=== PATIENT | male | born 1935 | race Caucasian/White ===

== ENCOUNTER 2018-02-22 12:19 | Emergency (ER) | payer MEDICARE, OTHER ==
[2018-02-22 12:34] VITALS: BP 171/67
[2018-02-22] MEDS ORDERED: methylPREDNISolone Sodium Succinate 125 MG/2 ML SDV IVPUSH ONE (12:39)
[2018-02-22] MEDS ORDERED: Ondansetron 4 MG/2 ML SDV IVPUSH ONE (12:39)
[2018-02-22] MEDS ORDERED: Sodium Chloride 0.9% 500 ML IV ONE (12:39)
[2018-02-22] MEDS ORDERED: Diazepam 5 MG/ML 10 ML Vial MDV IV ONE (12:40)
[2018-02-22] MEDS ORDERED: Sodium Chloride 0.9% 10 ML Syringe FLUSH PRN (12:40)
--- NOTE | 2018-02-22 12:56 | EDM.PDOC ---
ED HPI GENERAL MEDICAL PROBLEM - General Chief Complaint: Chest Pain Stated Complaint: DIZZY VOMITING AND SWEATING Time Seen by Provider: 02/22/18 12:25 Source of Information: Reports: Patient, RN Notes Reviewed - History of Present Illness INITIAL COMMENTS - FREE TEXT/NARRATIVE: 82-year-old male comes in after onset of severe dizziness, vertigo in nature with sudden onset very short time ago. He states he had leaned over to turn on some water to water his lawn. He straightened back up he had severe dizziness, like things were spinning around and also became very nauseated. He states he did make it to the bathroom but he did vomit a large amount. He did have some upper abdominal discomfort with the nausea and vomiting. That is now gone. No chest pain or difficulty breathing. He states that he does feel better now lying on a caught, lying still not moving. Been does seem to make the dizziness worse. No headache. He felt fine, completely normal earlier this morning. Left Lower Chest Pain Score (Numeric/FACES): 7 - Related Data Allergies Allergy/AdvReac Type Severity Reaction Status Date / Time No Known Allergies Allergy Verified 02/22/18 12:28 Home Meds: Home Meds Lisinopril/Hydrochlorothiazide [Lisinopril-Hctz 10-12.5 mg Tab] 1 each PO DAILY 06/12/16 [History] Simvastatin [Zocor] 20 mg PO DAILY 06/12/16 [History] metFORMIN HCl [Glucophage] 1,000 mg PO BID 06/12/16 [History] traMADol [Ultram] 50 mg PO BID 06/12/16 [History] Past Medical History HEENT History: Reports: Impaired Vision Cardiovascular History: Reports: High Cholesterol, Hypertension Endocrine/Metabolic History: Reports: Diabetes, Type II Social & Family History - Family History Family Medical History: Noncontributory - Tobacco Use Smoking Status *Q: Unknown Ever Smoked Second Hand Smoke Exposure: No - Recreational Drug Use Recreational Drug Use: No ED ROS GENERAL - Review of Systems Review Of Systems: See Below Constitutional: Reports: Diaphoresis (Now gone). Denies: Fever, Chills HEENT: Reports: Vertigo. Denies: Ear Discharge, Ear Pain, Sinus Problem, Vision Change Respiratory: Denies: Shortness of Breath Cardiovascular: Denies: Chest Pain GI/Abdominal: Reports: Abdominal Pain, Nausea (Upper abdominal, gone), Vomiting Musculoskeletal: Reports: No Symptoms Skin: Denies: Rash Neurological: Reports: Dizziness (No better), Weakness (Now better). Denies: Numbness, Tingling, Trouble Speaking ED EXAM, DIZZINESS - Physical Exam Exam: See Below General Appearance: Alert, No Apparent Distress Nystagmus: reproducible Ears: Normal External Exam Nose: Normal Inspection Throat/Mouth: Normal Inspection, Normal Oropharynx Head Exam: Atraumatic. No: Facial Swelling Vertigo: reproducible Neck: Normal Inspection Respiratory/Chest: No Respiratory Distress, Lungs Clear, Normal Breath Sounds Cardiovascular: Regular Rate, Rhythm GI/Abdominal: Soft, Non-Tender. No: Guarding Neurological: Alert, No Motor/Sensory Deficits, Oriented x 3 Back Exam: No: CVA Tenderness (L), CVA Tenderness (R) Extremities: Normal Inspection. No: Pedal Edema, Leg Pain Skin Exam: Warm, Dry, Normal Color EKG INTERPRETATION EKG Date: 02/22/18 Rhythm: Other (Sinus bradycardia) [place]: Normal P-Wave: Present QRS: Other (There are small Q waves V2) ST-T: Other (T-wave inversion in lead 3) Course - Vital Signs Last Recorded V/S: Last Vital Signs Temp 96.6 F 02/22/18 12:29 Pulse 54 L 02/22/18 12:29 Resp 16 02/22/18 12:29 BP 171/67 H 02/22/18 12:29 Pulse Ox 95 02/22/18 12:29 - Orders/Labs/Meds Orders: Active Orders 24 hr Category Date Time Status EKG 12 Lead [EKG Documentation Completion] [RC] STAT Care 02/22/18 12:39 Active Peripheral IV Care [RC] . DIRECTED Care 02/22/18 12:40 Active Sodium Chloride 0.9% [Saline Flush] Med 02/22/18 12:40 Active 10 ml FLUSH ASDIRECTED PRN Peripheral IV Insertion Adult [OM.PC] Stat Oth 02/22/18 12:39 Ordered Medication Orders Sodium Chloride (Saline Flush) 10 ml FLUSH ASDIRECTED PRN PRN Reason: Keep Vein Open Last Admin: 02/22/18 12:49 Dose: 10 ml Labs: Laboratory Tests 02/22/18 02/22/18 Range/Units 12:38 13:00 WBC 6.71 (4.23-9.07) K/mm3 RBC 4.54 L (4.63-6.08) M/mm3 Hgb 13.6 L (13.7-17.5) gm/L Hct 41.4 (40.1-51.0) % MCV 91.2 (79.0-92.2) fl MCH 30.0 (25.7-32.2) pg MCHC 32.9 (32.2-35.5) g/dl RDW Std Deviation 44.6 H (35.1-43.9) fL Plt Count 200 (163-337) K/mm3 MPV 10.2 (9.4-12.3) fl Neut % (Auto) 59.7 (34.0-67.9) % Lymph % (Auto) 26.4 (21.8-53.1) % [place] % (Auto) 11.3 (5.3-12.2) % Eos % (Auto) 1.9 (0.8-7.0) Baso % (Auto) 0.6 (0.1-1.2) % Neut # (Auto) 4.00 (1.78-5.38) K/mm3 Lymph # (Auto) 1.77 (1.32-3.57) K/mm3 [place] # (Auto) 0.76 (0.30-0.82) K/mm3 Eos # (Auto) 0.13 (0.04-0.54) K/mm3 Baso # (Auto) 0.04 (0.01-0.08) K/mm3 Sodium 140 (136-145) mEq/L Potassium 3.5 (3.5-5.1) mEq/L Chloride 103 (98-107) mEq/L Carbon Dioxide 27 (21-32) mEq/L Anion Gap 13.5 (5-15) BUN 21 H (7-18) mg/dL Creatinine 1.2 (0.7-1.3) mg/dL Est Cr Clr Drug Dosing 46.71 mL/min Estimated GFR (MDRD) 58 (>60) mL/min BUN/Creatinine Ratio 17.5 (14-18) Glucose 175 H (83-115) mg/dL Calcium 9.0 (8.5-10.1) mg/dL Total Bilirubin 0.9 (0.2-1.0) mg/dL AST 17 (15-37) U/L ALT 37 (16-63) U/L Alkaline Phosphatase 40 L (46-116) U/L Troponin I < 0.017 (0.00-0.056) ng/mL Total Protein 6.7 (6.4-8.2) g/dl Albumin 3.6 (3.4-5.0) g/dl Globulin 3.1 gm/dL Albumin/Globulin Ratio 1.2 (1-2) Meds: Medications Generic Name Dose Route Start Last Admin Trade Name Freq PRN Reason Stop Dose Admin Sodium Chloride 10 ml 02/22/18 12:40 02/22/18 12:49 Saline Flush FLUSH 10 ml ASDIRECTED PRN Administration Keep Vein Open Discontinued Medications Generic Name Dose Route Start Last Admin Trade Name Freq PRN Reason Stop Dose Admin Diazepam 2 mg 02/22/18 12:40 02/22/18 13:20 Valium IV 02/22/18 12:41 Not Given ONETIME ONE Diazepam 2.5 mg 02/22/18 13:11 02/22/18 13:18 Valium. PO 02/22/18 13:12 2.5 mg ONETIME ONE Administration Sodium Chloride 500 mls @ 999 mls/hr 02/22/18 12:39 02/22/18 12:48 Normal Saline IV 02/22/18 13:09 999 mls/hr .BOLUS ONE Administration Meclizine HCl 12.5 mg 02/22/18 14:35 02/22/18 14:40 Antivert PO 02/22/18 14:36 12.5 mg ONETIME ONE Administration Methylprednisolone Sodium Succinate 125 mg 02/22/18 12:39 02/22/18 12:50 Solu-Medrol IVPUSH 02/22/18 12:40 125 mg ONETIME ONE Administration Ondansetron HCl 4 mg 02/22/18 12:39 02/22/18 12:51 Zofran IVPUSH 02/22/18 12:40 4 mg ONETIME ONE Administration Departure - Departure Time of Disposition: 14:53 Disposition: Home, Self-Care 01 Condition: Fair Clinical Impression: Labyrinthitis Qualifiers: Laterality: unspecified laterality Qualified Code(s): H83.09 - Labyrinthitis, unspecified ear - Discharge Information Referrals: Evans Delaney MD [Primary Care Provider] - Forms: ED Department Discharge Additional Instructions: Rest, move slowly and carefully as tolerated, Antivert or meclizine 12.5 mg twice daily for the next 3-4 days until after symptoms have completely resolved , that is available OTC, you'll need to ask the pharmacist for that medication. Follow-up clinic if not getting back to normal within 3-5 days as expected, return to ED as needed if symptoms worsening in any way - My Orders Last 24 Hours: My Active Orders 02/22/18 12:39 EKG 12 Lead [EKG Documentation Completion] [RC] STAT Peripheral IV Insertion Adult [OM.PC] Stat 02/22/18 12:40 Peripheral IV Care [RC] . DIRECTED Sodium Chloride 0.9% [Saline Flush] 10 ml FLUSH ASDIRECTED PRN - Assessment/Plan Last 24 Hours: My Active Orders 02/22/18 12:39 EKG 12 Lead [EKG Documentation Completion] [RC] STAT Peripheral IV Insertion Adult [OM.PC] Stat 02/22/18 12:40 Peripheral IV Care [RC] . DIRECTED Sodium Chloride 0.9% [Saline Flush] 10 ml FLUSH ASDIRECTED PRN
[2018-02-22] MEDS ORDERED: Diazepam 5 MG Tab PO ONE (13:11)
[2018-02-22] MEDS ORDERED: Meclizine 12.5 MG Tab PO ONE (14:35)
== END 2018-02-22 15:30 | disposition home or self-care (01) ==
LOC: JD.ED 12:19
DX: H83.09 Labyrinthitis, unspecified ear (principal); E78.00 Pure hypercholesterolemia, unspecified; I10 Essential (primary) hypertension; E11.9 Type 2 diabetes mellitus without complications; Z79.84 Long term (current) use of oral hypoglycemic drugs; Z79.899 Other long term (current) drug therapy
CPT/HCPCS: 36415; 80053; 84484; 85025; 93005; 96361; 96374; 96375; 99284; A9270; J2405; J2930; J7040; J7050

== ENCOUNTER 2019-02-19 08:27 | Inpatient (IN) | payer MEDICARE, OTHER ==
[2019-02-19] MEDS ORDERED: Metoclopramide 10 MG/2 ML SDV IVPUSH ONE (08:44)
[2019-02-19] MEDS ORDERED: Dextrose 5%-0.9% NaCl 1,000 ML IV SCH (08:45)
[2019-02-19] MEDS ORDERED: LORazepam 2 MG/ML SDV IVPUSH ONE (08:56)
--- NOTE | 2019-02-19 08:57 | EDM.PDOC ---
ED HPI GENERAL MEDICAL PROBLEM - General Chief Complaint: Neurological Problem Stated Complaint: DIZZY,THROWING UP/CAN'T WALK Time Seen by Provider: 02/19/19 08:44 Source of Information: Reports: Patient History Limitations: Reports: No Limitations - History of Present Illness INITIAL COMMENTS - FREE TEXT/NARRATIVE: 83-year-old male presents the ED with acute onset of vertigo this morning. He has a history of recurrent vertigo last attack was about 6 months ago. His reports that he did comment that he had mild vertigo after seeing Dr. Rivera the chiropractor on Saturday this week. Denies any recent falls or closed head injuries. He is quite hard of hearing but doesn't usually wear hearing aids. Denies any humming , ringing or buzzings sounds in his ears . He states he was up in the night to void twice and wasn't vertiginous at those times. However when he got up earlier this morning he had to crawl to the bathroom as he could not walk. Of note he is asymptomatic when he is not moving and lying perfectly still. ringing or buzzing in his ears. He was up and about for the day and had eaten breakfast. He then developed a sudden onset of severe vertigo event that made him vomit and lose his breakfast. He states he was listing to both directions when he was trying to walk as if he been drinking all night. Denies any headache. No visual changes. No recent changes to any of his medications. Risk factors for stroke are hypertension, elevated cholesterol, type 2 diabetes. Onset: Today Onset Date: 02/19/19 Onset Time: 07:30 Duration: Minutes: Location: Reports: Generalized (Developed severe vertigo episode potato nausea and vomiting.) Quality: Reports: Other Severity: Severe (Vertigo symptoms with difficulty walking.) Improves with: Reports: Rest (No symptoms at rest.) Worsens with: Reports: Movement Context: Denies: Activity (Movement of head or neck or trying to walk.), Exercise, Lifting, Sick Contact, Trauma, Other Associated Symptoms: Reports: Nausea/Vomiting. Denies: No Other Symptoms, Confusion, Chest Pain, Cough, cough w sputum, Diaphoresis, Fever/Chills, Headaches, Loss of Appetite, Malaise, Rash (Vomited up his breakfast after developing vertigo), Seizure, Shortness of Breath, Syncope Treatments H[employer] TE[employer]ER: Reports: Other (see below) (9 at home.) - Related Data Allergies Allergy/AdvReac Type Severity Reaction Status Date / Time No Known Allergies Allergy Verified 02/19/19 08:38 Home Meds: Home Meds Lisinopril/Hydrochlorothiazide [Lisinopril-Hctz 10-12.5 mg Tab] 1 each PO DAILY 06/12/16 [History] Simvastatin [Zocor] 20 mg PO DAILY 06/12/16 [History] metFORMIN HCl [Glucophage] 1,000 mg PO BID 06/12/16 [History] traMADol [Ultram] 50 mg PO BID 06/12/16 [History] Aspirin [Adult Low Dose Aspirin EC] 81 mg PO BEDTIME 02/19/19 [History] Cyclobenzaprine [Flexeril] 10 mg PO BEDTIME PRN 02/19/19 [History] Levothyroxine [Synthroid] 50 mcg PO ACBREAKFAST 02/19/19 [History] Past Medical History HEENT History: Reports: Hard of Hearing (Does have a hearing aids but rarely uses them.), Impaired Vision, Macular Degeneration Cardiovascular History: Reports: High Cholesterol, Hypertension Respiratory History: Reports: COPD (Mild C OPD by history) Gastrointestinal History: Reports: GERD (Occasional GERD) Musculoskeletal History: Reports: Osteoarthritis (Knees hips back and neck at times) Endocrine/Metabolic History: Reports: Diabetes, Type II, Hypothyroidism (He is also on levothyroxine 50 g daily.) Social & Family History - Family History Family Medical History: Noncontributory - Living Situation & Occupation Living situation: Reports: (His had to be [facility] in [place] a week ago due to 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 He can now longer cope with her illness. His family indicates that he has been under great deal of stress due to this.) Occupation: Retired ED ROS GENERAL - Review of Systems Review Of Systems: See Below Constitutional: Reports: Malaise. Denies: Fever, Chills HEENT: Reports: Glasses, Hearing Loss, Vertigo (Has macular degeneration.), Vision Change Respiratory: Reports: Shortness of Breath ( History of recurrent bouts of vertigo in the past). Denies: Wheezing, Pleuritic Chest Pain, Cough, Sputum, Hemoptysis Cardiovascular: Reports: Blood Pressure Problem. Denies: No Symptoms, Chest Pain, Claudication, Dyspnea on Exertion, Edema, Lightheadedness, Orthopnea (On medication for blood pressure) Endocrine: Reports: Fatigue GI/Abdominal: Reports: Constipation, Nausea, Vomiting (Vomited once this morning after eating breakfast.). Denies: Abdominal Pain, Decreased Appetite, Difficulty Swallowing : Reports: Frequency (Occasional problems with constipation), Other (Nocturia usually 2.) Musculoskeletal: Reports: Back Pain (Knees hips shoulders and neck at times), Joint Pain Skin: Reports: No Symptoms Neurological: Reports: No Symptoms, Difficulty Walking (Unable to walk hardly at all this morning due to vertigo.) Psychiatric: Reports: No Symptoms Hematologic/Lymphatic: Reports: No Symptoms Immunologic: Reports: No Symptoms ED EXAM, NEURO - Physical Exam Exam: See Below Exam Limited By: Physical Impairment (Mildly hearing impaired.) General Appearance: Alert, WD/WN, No Apparent Distress, Other (Asymptomatic when lying still.) Eye Exam: Bilateral Eye: Normal Inspection, Nystagmus (No nystagmus identified.) Ears: Normal TMs (Now wearing hearing aids. No), Hearing Loss (Neck bilaterally) Throat/Mouth: Normal Inspection, Normal Lips, Normal Oropharynx, Other Head Exam: Atraumatic, Normocephalic (Uvula is in the midline) Neck: Normal Inspection, Supple, Non-Tender, Full Range of Motion Respiratory/Chest: No Respiratory Distress, Lungs Clear, No Accessory Muscle Use , Chest Non-Tender, Decreased Breath Sounds, Other (Sats are 94% on room air). No: Rhonchi, Wheezing Cardiovascular: Regular Rate, Rhythm, No Edema, No Gallop, No Murmur, No Rub. No: Normal Peripheral Pulses GI/Abdominal: Normal Bowel Sounds, Soft, Non-Tender, No Organomegaly, No Abnormal Bruit, No Mass, Pelvis Stable, Other (Umbilical hernia that is asymptomatic) Neurological: Alert, Normal Mood/Affect, Normal Dorsiflexion, CN II-XII Intact, Normal Plantar Flexion, No Motor/Sensory Deficits, Oriented x 3, Other (Heel to charles is normal. No pronator drift.). No: Abnormal Finger to Nose DTR: 0: Achilles (R), Achilles (L), 1+: Bicep (R), Bicep (L), Patella (R), Patella (L) Back Exam: Normal Inspection, Full Range of Motion. No: CVA Tenderness (R) Extremities: Normal Inspection, Normal Range of Motion, Non-Tender Psychiatric: Normal Affect, Normal Mood Skin Exam: Warm, Dry, Intact, Normal Color, No Rash EKG INTERPRETATION EKG Date: 02/19/19 Time: 09:10 Rhythm: Other Rate (Beats/Min): 44 [place]: LAD-Left [place] Deviation (Left axis deviation of -39) P-Wave: Present QRS: Other (Early R-wave transition in lead V3 V4. Consider septal hypertrophy pattern. Near Q-wave in 3 and aVF. Consider possible old inferior wall myocardial infraction) ST-T: Depressed (Mild ST segment depression to 3 and aVF.) QT: Prolonged (Mildly prolonged.) EKG Interpretation Comments: Abnormal ECG Course - Vital Signs Last Recorded V/S: Last Vital Signs Temp 35.7 C 02/19/19 08:34 Pulse 51 L 02/19/19 08:34 Resp 15 02/19/19 08:34 BP 144/77 H 02/19/19 08:34 Pulse Ox 94 L 02/19/19 08:34 - Orders/Labs/Meds Orders: Active Orders 24 hr Category Date Time Status EKG Documentation Completion [RC] STAT Care 02/19/19 08:45 Active EKG Documentation Completion [RC] STAT Care 02/19/19 09:00 Active [employer] Diet [DIET] Diet 02/19/19 Lunch Active Dextrose 5%-0.9% NaCl [Dextrose 5%-Normal Saline] 1,000 Med 02/19/19 08:45 Active ml IV ASDIRECTED Medication Orders Dextrose/Sodium Chloride (Dextrose 5%-Normal Saline) 1,000 mls @ 100 mls/hr IV ASDIRECTED MICHELLE Last Admin: 02/19/19 09:00 Dose: 100 mls/hr Labs: Laboratory Tests 02/19/19 02/19/19 02/19/19 Range/Units 09:00 09:00 09:00 WBC 8.35 (4.23-9.07) K/mm3 RBC 4.64 (4.63-6.08) M/mm3 Hgb 13.7 (13.7-17.5) gm/L Hct 41.8 (40.1-51.0) % MCV 90.1 (79.0-92.2) fl MCH 29.5 (25.7-32.2) pg MCHC 32.8 (32.2-35.5) g/dl RDW Std Deviation 44.0 H (35.1-43.9) fL Plt Count 214 (163-337) K/mm3 MPV 10.4 (9.4-12.3) fl Neutrophils % (Manual) 78 H (40-60) % Band Neutrophils % 0 (0-10) % Lymphocytes % (Manual) 15 L (20-40) % Atypical Lymphs % 0 % Monocytes % (Manual) 7 (2-10) % Eosinophils % (Manual) 0 L (0.8-7.0) % Basophils % (Manual) 0 L (0.2-1.2) Platelet Estimate Adequate RBC Morph Comment Normal PT 11.1 (9.5-12.1) SECONDS INR 1.02 APTT 24 (24-31) SECONDS Sodium 139 (136-145) mEq/L Potassium 3.6 (3.5-5.1) mEq/L Chloride 102 (98-107) mEq/L Carbon Dioxide 28 (21-32) mEq/L Anion Gap 12.6 (5-15) BUN 17 (7-18) mg/dL Creatinine 1.0 (0.7-1.3) mg/dL Est Cr Clr Drug Dosing 55.10 mL/min Estimated GFR (MDRD) > 60 (>60) mL/min BUN/Creatinine Ratio 17.0 (14-18) Glucose 170 H (83-115) mg/dL Calcium 9.1 (8.5-10.1) mg/dL Magnesium 1.8 (1.8-2.4) mg/dl Total Bilirubin 1.0 (0.2-1.0) mg/dL AST 21 (15-37) U/L ALT 37 (16-63) U/L Alkaline Phosphatase 40 L (46-116) U/L Troponin I < 0.017 (0.00-0.056) ng/mL C-Reactive Protein < 0.2 (<1.0) mg/dL NT-Pro-B Natriuret Pep (0-450) pg/mL Total Protein 6.8 (6.4-8.2) g/dl Albumin 3.6 (3.4-5.0) g/dl Globulin 3.2 gm/dL Albumin/Globulin Ratio 1.1 (1-2) TSH 3rd Generation (0.358-3.74) uIU/mL 02/19/19 02/19/19 Range/Units 09:00 09:00 WBC (4.23-9.07) K/mm3 RBC (4.63-6.08) M/mm3 Hgb (13.7-17.5) gm/L Hct (40.1-51.0) % MCV (79.0-92.2) fl MCH (25.7-32.2) pg MCHC (32.2-35.5) g/dl RDW Std Deviation (35.1-43.9) fL Plt Count (163-337) K/mm3 MPV (9.4-12.3) fl Neutrophils % (Manual) (40-60) % Band Neutrophils % (0-10) % Lymphocytes % (Manual) (20-40) % Atypical Lymphs % % Monocytes % (Manual) (2-10) % Eosinophils % (Manual) (0.8-7.0) % Basophils % (Manual) (0.2-1.2) Platelet Estimate RBC Morph Comment PT (9.5-12.1) SECONDS INR APTT (24-31) SECONDS Sodium (136-145) mEq/L Potassium (3.5-5.1) mEq/L Chloride (98-107) mEq/L Carbon Dioxide (21-32) mEq/L Anion Gap (5-15) BUN (7-18) mg/dL Creatinine (0.7-1.3) mg/dL Est Cr Clr Drug Dosing mL/min Estimated GFR (MDRD) (>60) mL/min BUN/Creatinine Ratio (14-18) Glucose (83-115) mg/dL Calcium (8.5-10.1) mg/dL Magnesium (1.8-2.4) mg/dl Total Bilirubin (0.2-1.0) mg/dL AST (15-37) U/L ALT (16-63) U/L Alkaline Phosphatase (46-116) U/L Troponin I (0.00-0.056) ng/mL C-Reactive Protein (<1.0) mg/dL NT-Pro-B Natriuret Pep 101 (0-450) pg/mL Total Protein (6.4-8.2) g/dl Albumin (3.4-5.0) g/dl Globulin gm/dL Albumin/Globulin Ratio (1-2) TSH 3rd Generation 2.594 (0.358-3.74) uIU/mL Meds: Medications Generic Name Dose Route Start Last Admin Trade Name Freq PRN Reason Stop Dose Admin Dextrose/Sodium Chloride 1,000 mls @ 100 mls/hr 02/19/19 08:45 02/19/19 09:00 Dextrose 5%-Normal Saline IV 100 mls/hr ASDIRECTED MICHELLE Administration Discontinued Medications Generic Name Dose Route Start Last Admin Trade Name Freq PRN Reason Stop Dose Admin Lorazepam 0.5 mg 02/19/19 08:56 02/19/19 09:12 Ativan IVPUSH 02/19/19 08:57 0.5 mg ONETIME ONE Administration Meclizine HCl 25 mg 02/19/19 11:40 02/19/19 12:10 Antivert PO 02/19/19 11:41 25 mg ONETIME ONE Administration Metoclopramide HCl 7.5 mg 02/19/19 08:44 02/19/19 09:00 Reglan IVPUSH 02/19/19 08:45 7.5 mg ONETIME ONE Administration - Radiology Interpretation Free Text/Narrative:: 83-year-old male presents to the ED with acute onset of vertigo this morning that precipitated nausea and vomiting of his breakfast. No recent falls or closed head injuries. He has a history of intermittent problems with vertigo. By history has some component of vertebrobasilar insufficiency. At rest he is asymptomatic. Complete neuro exam reveals no abnormalities. He has no nystagmus at present. No visual field losses.. He usually wears hearing aids but doesn't have remained today. Reports no increased humming,buzzing or ringing in his ears. Remains mildly nauseated. Plan IV Reglan 7.5 mg with Ativan 0.5 mg IV. IV will be D5 normal saline 100 mils per hour. Routine labs to be performed. At this time I see no evidence of focal neurological deficit to suggest stroke. Will reexamine him in about an hour and a quarter once the medic medications of become effective. - Re-Assessments/Exams Free Text/Narrative Re-Assessment/Exam: 02/19/19 10:03 Labs reveal a normal white count at 8.35 with 70% neutrophils and no band cells reported. Hemoglobin is 13.7 with hematocrit of 41.8. MCV is 90.1. Bili count 214,000. PT is 11.1 with an INR of 1.02. PTT is 24. Sodium 139 with a potassium of 3.6. Chloride 12 with a bicarbonate 28. Anion gap is 12.6. BUN is 17 with a creatinine of 1.0. GFR remains greater than 60. Glucose is elevated at 170. He is a type II diabetic. Calcium 9.1 with a magnesium of 1.8. Liver function is normal. Troponin I is less than 0.017. C-reactive protein is less than 0.2. BNP 101. Total protein 6.8 with an albumin fraction of 3.6. TSH is normal at 2.59. Therefore no laboratory abnormalities are appreciated. I see that the patient is on Flexeril at bedtime on a when necessary basis and I will questioned him as to whether he took this last night as it may or may not be contributing to vertigo symptoms. 02/19/19 10:08 patient had been sleeping. It's been an hour and a quarter since he received medications. We therefore did get him up for road testing and he failed. He is very ataxic almost with both legs. Concern therefore is for possible posterior brain circulation problems/ cerebellar ischemia. He will have a CT head done first to make sure there is no bleed . Creatinine is 1.0. 02/19/19 10:34 CT of the brain reveals advanced degenerative changes with marked dilatation of the lateral ventricles and small amount of encephalomalacia at the anterior horns. There is diffuse small vessel ischemic change in both basal ganglia worse on the left side as compared to the right. There is no obvious ischemic change in the cerebellum or the cerebral cortex. Due to his symptoms and availability of MRI he will have an MRI of his brain done without contrast and then MRI angiogram without contrast. 02/19/19 11:31 MRI of the brain has been completed. Ventricles along the basal cisterns and sulci over the convexities are mildly prominent. Normal signal void is seen within the major cerebral arteries within the skull base. Minimal mucosal thickening is seen within the left maxillary sinus. Left maxillary sinus is also somewhat hypoplastic as compared to the right side and findings are felt to be chronic. No abnormal signal seen within the brain parenchyma cerebellum specifically shows no abnormal signal. Contents of the internal auditory canals are normal no cerebellopontine angle cistern masses appreciated MRI angiogram of the brain is been completed as well both distal vertebral arteries are patent to the basilar artery is sour artery is patent into both posterior cerebral arteries. Carotid siphon appears unremarkable. Middle and anterior cerebral arteries are unremarkable. No discrete aneurysm or focal stenosis is seen. Therefore no central component to his vertigo is evident at this time. 02/19/19 11:42 Discussed the findings with his family I believe a sister and daughter. Patient reassured that he is not showing any signs of stroke. However the fact that he lives alone and he can't walk since he will have to stay in the hospital to week and resolve his vertigo symptoms. I did speak with --content strategy lead hospitalist and he will see the patient on the med surgery floor. He will be admitted to med surgery floor on telemetry. Departure - Departure Time of Disposition: 13:10 Disposition: Admitted As Inpatient 67 Condition: Fair Clinical Impression: Ataxic gait Benign paroxysmal positional vertigo Qualifiers: Laterality: unspecified laterality Qualified Code(s): H81.10 - Benign paroxysmal vertigo, unspecified ear - Discharge Information *PRESCRIPTION DRUG MONITORING PROGRAM REVIEWED*: Not Applicable *COPY OF PRESCRIPTION DRUG MONITORING REPORT IN PATIENT JAMIE: Not Applicable - My Orders Last 24 Hours: My Active Orders 02/19/19 08:45 EKG Documentation Completion [RC] STAT Dextrose 5%-0.9% NaCl [Dextrose 5%-Normal Saline] 1,000 ml IV ASDIRECTED 02/19/19 09:00 EKG Documentation Completion [RC] STAT 02/19/19 Lunch [employer] Diet [DIET] - Assessment/Plan Last 24 Hours: My Active Orders 02/19/19 08:45 EKG Documentation Completion [RC] STAT Dextrose 5%-0.9% NaCl [Dextrose 5%-Normal Saline] 1,000 ml IV ASDIRECTED 02/19/19 09:00 EKG Documentation Completion [RC] STAT 02/19/19 Lunch [employer] Diet [DIET]
--- NOTE | 2019-02-19 10:56 | CT ---
Head CT Technique: Multiple axial sections through the brain were obtained. Intravenous contrast was not utilized. Comparison: Prior head CT study of 06/12/16. Findings: Ventricles along with basal cisterns and sulci over the convexities are mildly prominent. Minimal diminished density is noted within the basal ganglia and periventricular white matter most likely due to slight small vessel ischemic demyelination change. No abnormalities are seen within the cerebellum. No midline shift or mass effect is seen. Bone window settings were reviewed which show no acute calvarial abnormality. Visualized sinuses are clear. Impression: 1. Mild senescent change. Nothing acute is appreciated on noncontrast head CT exam. Diagnostic code #2
--- NOTE | 2019-02-19 11:28 | MR ---
MR angiogram of brain Technique: MR angiogram sequence was obtained centered to the osage of Garcia. Multiple MIP images were obtained in multiple projections. Comparison: No prior intracranial angiogram. Findings: Both distal vertebral arteries are patent into the basilar artery. Basilar artery is patent into both posterior cerebral arteries. Carotid siphon appears unremarkable. Middle and anterior cerebral arteries are unremarkable. No discrete aneurysm or focal stenosis is seen. Impression: 1. No abnormality is seen on MR angiogram study of the brain which is centered to the osage of Garcia. Diagnostic code #1
--- NOTE | 2019-02-19 11:31 | MR ---
MRI brain Technique: T1 sagittal; T2, T2 FLAIR, T1 and diffusion axial; thin T2 gradient echo axial images through the internal auditory canals; T2 gradient echo coronal and T1-weighted coronal images were obtained. Comparison: Prior head CT study performed earlier on the same day (10:22 AM). Findings: Ventricles along with basal cisterns and sulci over the convexities are mildly prominent. Normal signal void is seen within the major cerebral arteries within the skull base. Minimal mucosal thickening is seen within the left maxillary sinus. Left maxillary sinus is also somewhat hypoplastic as compared to the right side and findings are felt to be chronic. No abnormal signal is seen within the brain parenchyma. Cerebellum specifically show no abnormal signal. Contents of the internal auditory canals are normal. No cerebellopontine angle cistern mass is seen. No acute diffusion abnormalities are seen. Impression: 1. Mild generalized atrophy. 2. Left maxillary sinus findings which are likely incidental. 3. No additional abnormality is seen on MRI study of the brain. There is specifically no cerebellar or brainstem abnormalities being seen on this exam. Diagnostic code #2
[2019-02-19] MEDS ORDERED: Meclizine 12.5 MG Tab PO ONE (11:40)
[2019-02-19] MEDS ORDERED: LORazepam 2 MG/ML SDV IV PRN (13:53)
[2019-02-19] MEDS ORDERED: Ondansetron 4 MG/2 ML SDV IV PRN (13:53)
--- NOTE | 2019-02-19 14:12 | PCM.HP ---
H&P History of Present Illness - General Date of Service: 02/19/19 Admit Problem/Dx: Admission Diagnosis/Problem Admission Diagnosis/Problem Vertigo Source of Information: Patient - History of Present Illness Initial Comments - Free Text/Narative: 83 yo WM with h/o Dm, Afib, BPV admitted through ED after sudden onset of severe vertigo the morning of the visit, somewhat improved in ED. Brain imaging did not show any new acute process. Admits to vomiting times one, no recent head trauma or seizures. 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 - Related Data Allergies/Adverse Reactions: Allergies Allergy/AdvReac Type Severity Reaction Status Date / Time No Known Allergies Allergy Verified 02/19/19 08:38 Home Medications: Home Meds Lisinopril/Hydrochlorothiazide [Lisinopril-Hctz 10-12.5 mg Tab] 1 each PO DAILY 06/12/16 [History] Simvastatin [Zocor] 20 mg PO DAILY 06/12/16 [History] metFORMIN HCl [Glucophage] 1,000 mg PO BID 06/12/16 [History] traMADol [Ultram] 50 mg PO BID 06/12/16 [History] Aspirin [Adult Low Dose Aspirin EC] 81 mg PO BEDTIME 02/19/19 [History] Cyclobenzaprine [Flexeril] 10 mg PO BEDTIME PRN 02/19/19 [History] Levothyroxine [Synthroid] 50 mcg PO ACBREAKFAST 02/19/19 [History] Past Medical History HEENT History: Reports: Hard of Hearing (Does have a hearing aids but rarely uses them.), Impaired Vision, Macular Degeneration Cardiovascular History: Reports: High Cholesterol, Hypertension Respiratory History: Reports: COPD (Mild C OPD by history) Gastrointestinal History: Reports: GERD (Occasional GERD) Musculoskeletal History: Reports: Osteoarthritis (Knees hips back and neck at times) Neurological History: Reports: Vertigo Endocrine/Metabolic History: Reports: Diabetes, Type II, Hypothyroidism (He is also on levothyroxine 50 g daily.) - Past Surgical History HEENT Surgical History: Reports: Tonsillectomy GI Surgical History: Reports: Colonoscopy Social & Family History - Family History Family Medical History: Noncontributory - Tobacco Use Smoking Status *Q: Never Smoker Second Hand Smoke Exposure: No - Caffeine Use Caffeine Use: Reports: Coffee - Recreational Drug Use Recreational Drug Use: No - Living Situation & Occupation Living situation: Reports: ([facility] [place] a week ago due to 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 He can now longer cope with her illness. His family indicates that he has been under great deal of stress due to this.) Occupation: Retired H&P Review of Systems - Review of Systems: Review Of Systems: See Below General: Denies: Fever, Chills, Weight Loss HEENT: Reports: Hearing Changes, Vertigo. Denies: Ear Pain, Visual Changes Pulmonary: Denies: Shortness of Breath, Wheezing Cardiovascular: Reports: Edema, Blood Pressure Problem. Denies: Chest Pain, Palpitations Gastrointestinal: Reports: Nausea. Denies: Abdominal Pain, Anorexia, Diarrhea Genitourinary: Denies: Dysuria, Retention Musculoskeletal: Reports: Back Pain Skin: Denies: Cyanosis, Jaundice Psychiatric: Reports: No Symptoms Neurological: Reports: Dizziness, Gait Disturbance. Denies: Seizure, Syncope, Change in Speech Hematologic/Lymphatic: Denies: Easy Bleeding, Easy Bruising Exam - Exam Exam: See Below - Vital Signs Vital Signs: Last Vital Signs Temp 96.3 F 02/19/19 08:34 Pulse 51 L 02/19/19 08:34 Resp 15 02/19/19 08:34 BP 144/77 H 02/19/19 08:34 Pulse Ox 94 L 02/19/19 08:34 Orthostatic Blood Pressure [ 169/72 Standing] Orthostatic Blood Pressure [ 167/65 Sitting] Orthostatic Blood Pressure [ 152/60 Supine] Weight: 225 lb - Exam General: Alert, Oriented, Cooperative HEENT: Conjunctiva Clear, Mucosa Moist & [place] Neck: Supple, Trachea Midline, +2 Carotid Pulse wo Bruit. No: JVD Lungs: Normal Respiratory Effort, Crackles. No: Wheezing Cardiovascular: Regular Rate, Normal S1, Normal S2. No: Rubs, Gallop/S3 GI/Abdominal Exam: Normal Bowel Sounds, Soft, Non-Tender, No Organomegaly, No Mass Extremities: Pedal Edema. No: Joint Swelling Peripheral Pulses: 2+: Posterior Tibial (L), Posterior Tibial (R) Skin: Warm, Dry Neurological: Cranial Nerves Intact, Reflexes Equal Bilateral, Strength Equal Bilateral Neuro Extensive - Mental Status: Alert, Oriented x3, Normal Mood/Affect Neuro Extensive - Motor, Sensory, Reflexes: Ataxia. No: Motor/Sensory Deficits - Patient Data Lab Results Last 24 hrs: Laboratory Results - last 24 hr 02/19/19 02/19/19 02/19/19 Range/Units 09:00 09:00 09:00 WBC 8.35 (4.23-9.07) K/mm3 RBC 4.64 (4.63-6.08) M/mm3 Hgb 13.7 (13.7-17.5) gm/L Hct 41.8 (40.1-51.0) % MCV 90.1 (79.0-92.2) fl MCH 29.5 (25.7-32.2) pg MCHC 32.8 (32.2-35.5) g/dl RDW Std Deviation 44.0 H (35.1-43.9) fL Plt Count 214 (163-337) K/mm3 MPV 10.4 (9.4-12.3) fl Neutrophils % (Manual) 78 H (40-60) % Band Neutrophils % 0 (0-10) % Lymphocytes % (Manual) 15 L (20-40) % Atypical Lymphs % 0 % Monocytes % (Manual) 7 (2-10) % Eosinophils % (Manual) 0 L (0.8-7.0) % Basophils % (Manual) 0 L (0.2-1.2) Platelet Estimate Adequate RBC Morph Comment Normal PT 11.1 (9.5-12.1) SECONDS INR 1.02 APTT 24 (24-31) SECONDS Sodium 139 (136-145) mEq/L Potassium 3.6 (3.5-5.1) mEq/L Chloride 102 (98-107) mEq/L Carbon Dioxide 28 (21-32) mEq/L Anion Gap 12.6 (5-15) BUN 17 (7-18) mg/dL Creatinine 1.0 (0.7-1.3) mg/dL Est Cr Clr Drug Dosing 55.10 mL/min Estimated GFR (MDRD) > 60 (>60) mL/min BUN/Creatinine Ratio 17.0 (14-18) Glucose 170 H (83-115) mg/dL Calcium 9.1 (8.5-10.1) mg/dL Magnesium 1.8 (1.8-2.4) mg/dl Total Bilirubin 1.0 (0.2-1.0) mg/dL AST 21 (15-37) U/L ALT 37 (16-63) U/L Alkaline Phosphatase 40 L (46-116) U/L Troponin I < 0.017 (0.00-0.056) ng/mL C-Reactive Protein < 0.2 (<1.0) mg/dL NT-Pro-B Natriuret Pep (0-450) pg/mL Total Protein 6.8 (6.4-8.2) g/dl Albumin 3.6 (3.4-5.0) g/dl Globulin 3.2 gm/dL Albumin/Globulin Ratio 1.1 (1-2) TSH 3rd Generation (0.358-3.74) uIU/mL 02/19/19 02/19/19 Range/Units 09:00 09:00 WBC (4.23-9.07) K/mm3 RBC (4.63-6.08) M/mm3 Hgb (13.7-17.5) gm/L Hct (40.1-51.0) % MCV (79.0-92.2) fl MCH (25.7-32.2) pg MCHC (32.2-35.5) g/dl RDW Std Deviation (35.1-43.9) fL Plt Count (163-337) K/mm3 MPV (9.4-12.3) fl Neutrophils % (Manual) (40-60) % Band Neutrophils % (0-10) % Lymphocytes % (Manual) (20-40) % Atypical Lymphs % % Monocytes % (Manual) (2-10) % Eosinophils % (Manual) (0.8-7.0) % Basophils % (Manual) (0.2-1.2) Platelet Estimate RBC Morph Comment PT (9.5-12.1) SECONDS INR APTT (24-31) SECONDS Sodium (136-145) mEq/L Potassium (3.5-5.1) mEq/L Chloride (98-107) mEq/L Carbon Dioxide (21-32) mEq/L Anion Gap (5-15) BUN (7-18) mg/dL Creatinine (0.7-1.3) mg/dL Est Cr Clr Drug Dosing mL/min Estimated GFR (MDRD) (>60) mL/min BUN/Creatinine Ratio (14-18) Glucose (83-115) mg/dL Calcium (8.5-10.1) mg/dL Magnesium (1.8-2.4) mg/dl Total Bilirubin (0.2-1.0) mg/dL AST (15-37) U/L ALT (16-63) U/L Alkaline Phosphatase (46-116) U/L Troponin I (0.00-0.056) ng/mL C-Reactive Protein (<1.0) mg/dL NT-Pro-B Natriuret Pep 101 (0-450) pg/mL Total Protein (6.4-8.2) g/dl Albumin (3.4-5.0) g/dl Globulin gm/dL Albumin/Globulin Ratio (1-2) TSH 3rd Generation 2.594 (0.358-3.74) uIU/mL Result Diagrams: 02/19/19 09:00 02/19/19 09:00 - Problem List (1) Benign paroxysmal positional vertigo SNOMED Code(s): 367719033 ICD Code: H81.10 - BENIGN PAROXYSMAL VERTIGO, UNSPECIFIED EAR Status: Acute Current Visit: Yes Qualifiers: Laterality: unspecified laterality Qualified Code(s): H81.10 - Benign paroxysmal vertigo, unspecified ear (2) Diabetes mellitus SNOMED Code(s): 84248066 ICD Code: E11.9 - TYPE 2 DIABETES MELLITUS WITHOUT COMPLICATIONS Status: Acute Current Visit: Yes Qualifiers: Diabetes mellitus type: type 2 Diabetes mellitus retirement insulin use: without roasterman use Diabetes mellitus complication status: without complication Qualified Code(s): E11.9 - Type 2 diabetes mellitus without complications Problem List Initiated/Reviewed/Updated: Yes Orders Last 24hrs: Active Orders 24 hr Category Date Time Status Admission Status [Patient Status] [ADT] Routine ADT 02/19/19 11:48 Active Blood Glucose Check, Bedside [RC] QIDACANDBED Care 02/19/19 13:53 Active Blood Glucose Check, Bedside [RC] QIDACANDBED Care 02/19/19 14:05 Ordered EKG Documentation Completion [RC] STAT Care 02/19/19 08:45 Active EKG Documentation Completion [RC] STAT Care 02/19/19 09:00 Active Orthostatic Vital Signs [RC] Q4HR Care 02/19/19 14:02 Ordered Oxygen Therapy [RC] PRN Care 02/19/19 13:53 Active Up With Assistance [RC] ASDIRECTED Care 02/19/19 13:53 Active VTE/DVT Education [RC] PER UNIT ROUTINE Care 02/19/19 13:53 Active Vital Signs [RC] Q4H Care 02/19/19 13:53 Active PT Evaluation and Treatment [CONS] Routine Cons 02/19/19 13:58 Ordered [place] [employer] Diet [DIET] Diet 02/19/19 Lunch Active Heart Healthy Diet [DIET] Diet 02/19/19 Dinner Active BMP [BASIC METABOLIC PANEL,BMP] [CHEM] AM Lab 02/20/19 05:11 Ordered CBC WITH AUTO DIFF [HEME] AM Lab 02/20/19 05:11 Ordered GLYCOSYLATED HEMOGLOBIN,HGBA1C [CHEM] AM Lab 02/20/19 05:11 Ordered LIPID PANEL [CHEM] AM Lab 02/20/19 05:11 Ordered MAGNESIUM [CHEM] AM Lab 02/20/19 05:00 Ordered PHOSPHORUS [CHEM] AM Lab 02/20/19 05:00 Ordered Aspirin [Halfprin] Med 02/19/19 21:00 Active 81 mg PO BEDTIME Dextrose 5%-0.9% NaCl [Dextrose 5%-Normal Saline] 1,000 Med 02/19/19 08:45 Active ml IV ASDIRECTED Enoxaparin [Lovenox] Med 02/19/19 14:00 Ordered 40 mg SUBCUT DAILY LORazepam [Ativan] Med 02/19/19 13:53 Ordered 1 mg IV Q6H PRN Levothyroxine [Synthroid] Med 02/20/19 06:00 Active 50 mcg PO ACBREAKFAST Lisinopril/Hydrochlorothiazide Med 02/20/19 09:00 Ordered 1 each PO DAILY Ondansetron [Zofran] Med 02/19/19 13:53 Ordered 4 mg IV Q4H PRN Simvastatin [Zocor] Med 02/20/19 09:00 Ordered 20 mg PO DAILY Resuscitation Status Routine Resus Stat 02/19/19 13:53 Ordered Medication Orders Aspirin (Halfprin) 81 mg PO BEDTIME MICHELLE Enoxaparin Sodium (Lovenox) 40 mg SUBCUT DAILY MICHELLE Dextrose/Sodium Chloride (Dextrose 5%-Normal Saline) 1,000 mls @ 100 mls/hr IV ASDIRECTED MICHELLE Last Admin: 02/19/19 09:00 Dose: 100 mls/hr Levothyroxine Sodium (Synthroid) 50 mcg PO ACBREAKFAST [facility] Lorazepam (Ativan) 1 mg IV Q6H PRN PRN Reason: Nausea/Vomiting Non-Formulary Medication (Lisinopril/Hydrochlorothiazide) 1 each PO DAILY [facility] Ondansetron HCl (Zofran) 4 mg IV Q4H PRN PRN Reason: Nausea/Vomiting Simvastatin (Zocor) 20 mg PO DAILY [facility] Assessment/Plan Comment:: 1. Bedrest. Orthostatic vitals. 2. Antiemetics, meclizine, lorazepam, ondansetron prn 3. PT consult for Vicky-Hallpike and Aubree maneuvers. 4. Hold metformin, Scr 1.6, continue SSI, HbA1C
[2019-02-19] MEDS ORDERED: Enoxaparin 40 MG/0.4 ML Syringe SUBCUT SCH (15:00)
[2019-02-19] MEDS ORDERED: Sodium Chloride 0.9% 10 ML Syringe FLUSH PRN (18:00)
[2019-02-19] MEDS ORDERED: [UNRECOGNIZED DRUG - OTHER] TOP PRN ×2 (18:01→18:08)
[2019-02-19] MEDS ORDERED: Aspirin 81 MG Tab.EC PO SCH (21:00)
[2019-02-19] MEDS ORDERED: METFORMIN HCL 1000 MG PO SCH (21:00)
[2019-02-20] MEDS ORDERED: Levothyroxine 50 MCG Tab PO SCH (06:00)
[2019-02-20 06:44] LABS: HEMOGLOBIN A1C 7.2 % (4.50-6.20)
[2019-02-20 08:40] VITALS: BP 118/65
[2019-02-20] MEDS ORDERED: Hydrochlorothiazide 12.5 MG Cap PO SCH (09:00)
[2019-02-20] MEDS ORDERED: Lisinopril 10 MG Tab PO SCH (09:00)
[2019-02-20] MEDS ORDERED: Simvastatin 20 MG Tab PO SCH (09:00)
--- NOTE | 2019-02-20 12:06 | PCM.DCSUM1 ---
Discharge Summary - Hospital Course Free Text/Narrative:: 83 yo WM with h/o Dm, Afib, BPV admitted through ED after sudden onset of severe vertigo the morning of the visit, somewhat improved in ED. Brain imaging did not show any new acute process. Admits to vomiting times one, no recent head trauma or seizures. 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 [place]-Hallpike was negative, all the symptoms resolved. Being discharged home with 2 week f/u with PCP. Diagnosis: Stroke: No - Discharge Data Discharge Date: 02/20/19 Discharge Disposition: Home, Self-Care 01 Condition: Good - Discharge Diagnosis/Problem(s) (1) Benign paroxysmal positional vertigo SNOMED Code(s): 382242829 ICD Code: H81.10 - BENIGN PAROXYSMAL VERTIGO, UNSPECIFIED EAR Status: Acute Current Visit: Yes Qualifiers: Laterality: unspecified laterality Qualified Code(s): H81.10 - Benign paroxysmal vertigo, unspecified ear (2) Diabetes mellitus SNOMED Code(s): 46268411 ICD Code: E11.9 - TYPE 2 DIABETES MELLITUS WITHOUT COMPLICATIONS Status: Acute Current Visit: Yes Qualifiers: Diabetes mellitus type: type 2 Diabetes mellitus senior living insulin use: without pharmaceutical representative use Diabetes mellitus complication status: without complication Qualified Code(s): E11.9 - Type 2 diabetes mellitus without complications - Patient Summary/Data Consults: Consultations 02/19/19 13:58 PT Evaluation and Treatment [CONS] Routine - Patient Instructions Diet: Heart Healthy Diet Activity: No Strenuous Activities Driving: Do Not Drive - Discharge Plan *PRESCRIPTION DRUG MONITORING PROGRAM REVIEWED*: Not Applicable *COPY OF PRESCRIPTION DRUG MONITORING REPORT IN PATIENT JAMIE: Not Applicable Home Medications: Home Meds Lisinopril/Hydrochlorothiazide [Lisinopril-Hctz 10-12.5 mg Tab] 1 each PO DAILY 06/12/16 [History] Simvastatin [Zocor] 20 mg PO DAILY 06/12/16 [History] metFORMIN HCl [Glucophage] 1,000 mg PO BID 06/12/16 [History] traMADol [Ultram] 50 mg PO BID 06/12/16 [History] Aspirin [Adult Low Dose Aspirin EC] 81 mg PO BEDTIME 02/19/19 [History] Cyclobenzaprine [Flexeril] 10 mg PO BEDTIME PRN 02/19/19 [History] Levothyroxine [Synthroid] 50 mcg PO ACBREAKFAST 02/19/19 [History] hydroCHLOROthiazide [Hydrochlorothiazide] 12.5 mg PO DAILY cap 02/20/19 [Rx] Patient Handouts: Benign Positional Vertigo, Fall Prevention in the Home, Adult Referrals: Evans Delaney MD [Primary Care Provider] - - Discharge Summary/Plan Comment DC Time >30 min.: No - Patient Data Vitals - Most Recent: Last Vital Signs Temp 97.5 F 02/20/19 07:56 Pulse 64 02/20/19 08:45 Resp 18 02/20/19 08:45 BP 118/65 02/20/19 08:34 Pulse Ox 95 02/20/19 07:56 Orthostatic Blood Pressure [ 124/78 Standing] Orthostatic Blood Pressure [ 121/64 Sitting] Orthostatic Blood Pressure [ 119/50 Supine] Weight - Most Recent: 210 lb 8 oz I&O - Last 24 hours: Intake & Output 02/20/19 02/20/19 02/20/19 03:59 11:59 19:59 Intake Total 670 Output Total 850 Balance -180 Lab Results - Last 24 hrs: Laboratory Results - last 24 hr 02/19/19 02/19/19 02/20/19 Range/Units 17:27 20:25 05:45 WBC (4.23-9.07) K/mm3 RBC (4.63-6.08) M/mm3 Hgb (13.7-17.5) gm/L Hct (40.1-51.0) % MCV (79.0-92.2) fl MCH (25.7-32.2) pg MCHC (32.2-35.5) g/dl RDW Std Deviation (35.1-43.9) fL Plt Count (163-337) K/mm3 MPV (9.4-12.3) fl Neut % (Auto) (34.0-67.9) % Lymph % (Auto) (21.8-53.1) % [place] % (Auto) (5.3-12.2) % Eos % (Auto) (0.8-7.0) Baso % (Auto) (0.1-1.2) % Neut # (Auto) (1.78-5.38) K/mm3 Lymph # (Auto) (1.32-3.57) K/mm3 [place] # (Auto) (0.30-0.82) K/mm3 Eos # (Auto) (0.04-0.54) K/mm3 Baso # (Auto) (0.01-0.08) K/mm3 Sodium (136-145) mEq/L Potassium (3.5-5.1) mEq/L Chloride (98-107) mEq/L Carbon Dioxide (21-32) mEq/L Anion Gap (5-15) BUN (7-18) mg/dL Creatinine (0.7-1.3) mg/dL Est Cr Clr Drug Dosing mL/min Estimated GFR (MDRD) (>60) mL/min BUN/Creatinine Ratio (14-18) Glucose (83-115) mg/dL POC Glucose 136 H 120 H (83-110) mg/dL Hemoglobin A1c (4.50-6.20) % Calcium (8.5-10.1) mg/dL Phosphorus 3.3 (2.6-4.7) mg/dL Magnesium 1.9 (1.8-2.4) mg/dl Triglycerides (<150) mg/dL Cholesterol (<200) mg/dL LDL Cholesterol Direct (<100) mg/dL HDL Cholesterol (40-59) mg/dL 02/20/19 02/20/19 02/20/19 Range/Units 05:45 05:45 05:45 WBC 6.90 (4.23-9.07) K/mm3 RBC 4.40 L (4.63-6.08) M/mm3 Hgb 13.1 L (13.7-17.5) gm/L Hct 39.8 L (40.1-51.0) % MCV 90.5 (79.0-92.2) fl MCH 29.8 (25.7-32.2) pg MCHC 32.9 (32.2-35.5) g/dl RDW Std Deviation 43.4 (35.1-43.9) fL Plt Count 204 (163-337) K/mm3 MPV 10.7 (9.4-12.3) fl Neut % (Auto) 58.5 (34.0-67.9) % Lymph % (Auto) 27.2 (21.8-53.1) % [place] % (Auto) 11.6 (5.3-12.2) % Eos % (Auto) 1.9 (0.8-7.0) Baso % (Auto) 0.7 (0.1-1.2) % Neut # (Auto) 4.03 (1.78-5.38) K/mm3 Lymph # (Auto) 1.88 (1.32-3.57) K/mm3 [place] # (Auto) 0.80 (0.30-0.82) K/mm3 Eos # (Auto) 0.13 (0.04-0.54) K/mm3 Baso # (Auto) 0.05 (0.01-0.08) K/mm3 Sodium 140 (136-145) mEq/L Potassium 3.8 (3.5-5.1) mEq/L Chloride 105 (98-107) mEq/L Carbon Dioxide 23 (21-32) mEq/L Anion Gap 15.8 H (5-15) BUN 16 (7-18) mg/dL Creatinine 1.2 (0.7-1.3) mg/dL Est Cr Clr Drug Dosing 45.92 mL/min Estimated GFR (MDRD) 58 (>60) mL/min BUN/Creatinine Ratio 13.3 L (14-18) Glucose 131 H (83-115) mg/dL POC Glucose (83-110) mg/dL Hemoglobin A1c 7.20 H (4.50-6.20) % Calcium 9.0 (8.5-10.1) mg/dL Phosphorus (2.6-4.7) mg/dL Magnesium (1.8-2.4) mg/dl Triglycerides 172 H (<150) mg/dL Cholesterol 137 (<200) mg/dL LDL Cholesterol Direct 78 (<100) mg/dL HDL Cholesterol 43.0 (40-59) mg/dL 02/20/19 02/20/19 Range/Units 05:50 11:21 WBC (4.23-9.07) K/mm3 RBC (4.63-6.08) M/mm3 Hgb (13.7-17.5) gm/L Hct (40.1-51.0) % MCV (79.0-92.2) fl MCH (25.7-32.2) pg MCHC (32.2-35.5) g/dl RDW Std Deviation (35.1-43.9) fL Plt Count (163-337) K/mm3 MPV (9.4-12.3) fl Neut % (Auto) (34.0-67.9) % Lymph % (Auto) (21.8-53.1) % [place] % (Auto) (5.3-12.2) % Eos % (Auto) (0.8-7.0) Baso % (Auto) (0.1-1.2) % Neut # (Auto) (1.78-5.38) K/mm3 Lymph # (Auto) (1.32-3.57) K/mm3 [place] # (Auto) (0.30-0.82) K/mm3 Eos # (Auto) (0.04-0.54) K/mm3 Baso # (Auto) (0.01-0.08) K/mm3 Sodium (136-145) mEq/L Potassium (3.5-5.1) mEq/L Chloride (98-107) mEq/L Carbon Dioxide (21-32) mEq/L Anion Gap (5-15) BUN (7-18) mg/dL Creatinine (0.7-1.3) mg/dL Est Cr Clr Drug Dosing mL/min Estimated GFR (MDRD) (>60) mL/min BUN/Creatinine Ratio (14-18) Glucose (83-115) mg/dL POC Glucose 127 H 114 H (83-110) mg/dL Hemoglobin A1c (4.50-6.20) % Calcium (8.5-10.1) mg/dL Phosphorus (2.6-4.7) mg/dL Magnesium (1.8-2.4) mg/dl Triglycerides (<150) mg/dL Cholesterol (<200) mg/dL LDL Cholesterol Direct (<100) mg/dL HDL Cholesterol (40-59) mg/dL Med Orders - Current: Current Medications Aspirin (Halfprin) 81 mg PO BEDTIME [facility] Last Admin: 02/19/19 20:21 Dose: 81 mg Enoxaparin Sodium (Lovenox) 40 mg SUBCUT Q24H [facility] Last Admin: 02/19/19 15:01 Dose: 40 mg Hydrochlorothiazide (Hydrochlorothiazide) 12.5 mg PO DAILY [facility] Last Admin: 02/20/19 08:36 Dose: 12.5 mg Levothyroxine Sodium (Synthroid) 50 mcg PO ACBREAKFAST [facility] Last Admin: 02/20/19 05:37 Dose: 50 mcg Lisinopril (Prinivil) 10 mg PO DAILY [facility] Last Admin: 02/20/19 08:34 Dose: 10 mg Lorazepam (Ativan) 1 mg IV Q6H PRN PRN Reason: Nausea/Vomiting Theragesic Creme (Own Med) 0 each TOP ASDIRECTED PRN PRN Reason: Pain Last Admin: 02/19/19 20:22 Dose: 1 each Ondansetron HCl (Zofran) 4 mg IV Q4H PRN PRN Reason: Nausea/Vomiting Simvastatin (Zocor) 20 mg PO DAILY [facility] Last Admin: 02/20/19 08:36 Dose: 20 mg Sodium Chloride (Saline Flush) 10 ml FLUSH ASDIRECTED PRN PRN Reason: Keep Vein Open Discontinued Medications Dextrose/Sodium Chloride (Dextrose 5%-Normal Saline) 1,000 mls @ 100 mls/hr IV ASDIRECTED [facility] Last Admin: 02/19/19 09:00 Dose: 100 mls/hr Lorazepam (Ativan) 0.5 mg IVPUSH ONETIME ONE Stop: 02/19/19 08:57 Last Admin: 02/19/19 09:12 Dose: 0.5 mg Meclizine HCl (Antivert) 25 mg PO ONETIME ONE Stop: 02/19/19 11:41 Last Admin: 02/19/19 12:10 Dose: 25 mg Metoclopramide HCl (Reglan) 7.5 mg IVPUSH ONETIME ONE Stop: 02/19/19 08:45 Last Admin: 02/19/19 09:00 Dose: 7.5 mg Non-Formulary Medication (Metformin Hcl [Glucophage]) 1,000 mg PO BID [facility] Theragesic Creme (Own Med) 1 each TOP ASDIRECTED PRN PRN Reason: Pain - Exam Physical Findings Comments:: General: Alert, Oriented, Cooperative HEENT: Conjunctiva Clear, Mucosa Moist & [place] Neck: Supple, Trachea Midline, +2 Carotid Pulse wo Bruit. No: JVD Lungs: Normal Respiratory Effort, Crackles. No: Wheezing Cardiovascular: Regular Rate, Normal S1, Normal S2. No: Rubs, Gallop/S3 GI/Abdominal Exam: Normal Bowel Sounds, Soft, Non-Tender, No Organomegaly, No Mass Extremities: Pedal Edema. No: Joint Swelling Peripheral Pulses: 2+: Posterior Tibial (L), Posterior Tibial (R) Skin: Warm, Dry Neurological: Cranial Nerves Intact, Reflexes Equal Bilateral, Strength Equal Bilateral Neuro Extensive - Mental Status: Alert, Oriented x3, Normal Mood/Affect Neuro Extensive - Motor, Sensory, Reflexes: Ataxia. No: Motor/Sensory Deficits
== END 2019-02-20 14:56 | disposition home or self-care (01) | DRG 149 ==
LOC: JD.ED 08:27 → JD.MS 11:48
PROVIDERS: ADMIT Emergency Medicine; ATTEND Internal Medicine
DX: H81.10 Benign paroxysmal vertigo, unspecified ear (principal); E11.9 Type 2 diabetes mellitus without complications; I48.91 Unspecified atrial fibrillation; H91.90 Unspecified hearing loss, unspecified ear; H54.7 Unspecified visual loss; H35.30 Unspecified macular degeneration; E78.00 Pure hypercholesterolemia, unspecified; I10 Essential (primary) hypertension; J44.9 Chronic obstructive pulmonary disease, unspecified; K21.9 Gastro-esophageal reflux disease without esophagitis; M19.90 Unspecified osteoarthritis, unspecified site; E03.9 Hypothyroidism, unspecified; R26.0 Ataxic gait; Z79.82 Long term (current) use of aspirin; Z79.84 Long term (current) use of oral hypoglycemic drugs; Z79.899 Other long term (current) drug therapy
CPT/HCPCS: 36415; 70450; 70450-26; 70544; 70544-26; 70551; 70551-26; 80048; 80053; 80061; 82962; 83036; 83735; 83880; 84100; 84443; 84484; 85007; 85025; 85027; 85610; 85730; 86140; 93005; 96361; 96374; 96375; 97161-GP; 99285-25; A9270-GY; J1650; J2060; J2765; J7042

== ENCOUNTER 2021-03-13 06:56 | Emergency (ER) | payer MEDICARE, OTHER ==
[2021-03-13 07:16] VITALS: BP 168/60; PULSE 72
--- NOTE | 2021-03-13 07:44 | EDM.PDOC ---
ED HPI GENERAL MEDICAL PROBLEM - General Chief Complaint: Neuro Symptoms/Deficits Stated Complaint: DIZZY/NAUSEA Time Seen by Provider: 03/13/21 07:02 Source of Information: Reports: Patient, Family History Limitations: Reports: No Limitations - History of Present Illness INITIAL COMMENTS - FREE TEXT/NARRATIVE: Patient presents with a feeling of a lightheaded dizziness and weakness as well as some nausea and sweats. Patient was doing his normal routine drinking some coffee with his friends at the hub. He then was noted to have onset of sweats and looked uncomfortable nauseated and then he felt more dizzy and sweaty. His friends called his daughter to come pick him up as he wanted to drive home. Patient was feeling normal any got up this morning no headaches no double vision or blurry vision nausea but no vomiting little bit of a runny nose and sore throat no fevers occasional cough but no chest pain or palpitations no abdominal pain no diarrhea no burning pain or blood in the urine his balance seem to be a little off when he first helped him to the car to drive him here. [place] somewhat lightheaded. No fainting spell no ringing in the ears she does have some hearing loss on the right ear that is normal no smell or taste problems no slurred speech but sounds like he has had this happen before. - Related Data Allergies Allergy/AdvReac Type Severity Reaction Status Date / Time No Known Allergies Allergy Verified 03/13/21 07:16 Home Meds: Home Meds Lisinopril/Hydrochlorothiazide [Lisinopril-Hctz 10-12.5 mg Tab] 1 each PO DAILY 06/12/16 [History] Simvastatin [Zocor] 20 mg PO DAILY 06/12/16 [History] metFORMIN HCl [Glucophage] 1,000 mg PO BID 06/12/16 [History] traMADol [Ultram] 50 mg PO BID 06/12/16 [History] Aspirin [Adult Low Dose Aspirin EC] 81 mg PO BEDTIME 02/19/19 [History] Cyclobenzaprine [Flexeril] 10 mg PO BEDTIME PRN 02/19/19 [History] Levothyroxine [Synthroid] 50 mcg PO ACBREAKFAST 02/19/19 [History] Past Medical History HEENT History: Reports: Hard of Hearing (Does have a hearing aids but rarely uses them.), Impaired Vision, Macular Degeneration Cardiovascular History: Reports: High Cholesterol, Hypertension Respiratory History: Reports: COPD (Mild C OPD by history) Gastrointestinal History: Reports: GERD (Occasional GERD) Musculoskeletal History: Reports: Osteoarthritis (Knees hips back and neck at times) Neurological History: Reports: Vertigo Endocrine/Metabolic History: Reports: Diabetes, Type II, Hypothyroidism (He is also on levothyroxine 50 g daily.) - Infectious Disease History Infectious Disease History: Reports: Chicken Pox, Measles - Past Surgical History HEENT Surgical History: Reports: Tonsillectomy GI Surgical History: Reports: Colonoscopy Social & Family History - Family History Family Medical History: No Pertinent Family History - Caffeine Use Caffeine Use: Reports: Coffee - Living Situation & Occupation Living situation: Reports: (His [facility] [place] a week ago due to 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 He can now longer cope with her illness. His family indicates that he has been under great deal of stress due to this.) Occupation: Retired ED ROS GENERAL - Review of Systems Review Of Systems: See Below Constitutional: Reports: Diaphoresis. Denies: Fever, Chills HEENT: Reports: Glasses, Hearing Loss, Rhinitis. Denies: Vision Change Respiratory: Denies: Shortness of Breath, Cough Cardiovascular: Reports: Lightheadedness. Denies: Chest Pain, Dyspnea on Exertion, Syncope GI/Abdominal: Reports: Nausea. Denies: Abdominal Pain, Diarrhea, Distension, Vomiting : Denies: Dysuria, Frequency, Hematuria Musculoskeletal: Denies: Muscle Pain Skin: Reports: No Symptoms Neurological: Reports: Dizziness, Difficulty Walking, Weakness, Gait Disturbance. Denies: Headache, Numbness, Paresthesia, Syncope, Tingling, Trouble Speaking, Change in Speech Psychiatric: Reports: No Symptoms ED EXAM, NEURO - Physical Exam Exam: See Below Exam Limited By: No Limitations General Appearance: Alert, WD/WN, No Apparent Distress Eye Exam: Bilateral Eye: EOMI, PERRL, Vision Changes (Gross visual field deficit or nystagmus) Ears: Normal External Exam, Normal Canal Throat/Mouth: Normal Inspection, Normal Oropharynx, Normal Voice Neck: Normal Inspection, Supple Respiratory/Chest: No Respiratory Distress, Lungs Clear, Normal Breath Sounds Cardiovascular: Normal Peripheral Pulses, Regular Rate, Rhythm, No Edema GI/Abdominal: Normal Bowel Sounds, Soft, Non-Tender. No: Abnormal Bowel Sounds Neurological: Alert, Normal Mood/Affect, Normal Dorsiflexion, CN II-XII Intact, No Motor/Sensory Deficits, Oriented x 3, Abnormal Gait, Other (Cerebellar testing is negative Romberg test is essentially negative. Vicky-Hallpike maneuvers really are not appreciated to for any nystagmus or reproducible dizziness.) Extremities: Normal Inspection, No Pedal Edema Psychiatric: Normal Affect Skin Exam: Warm #1 Interpretation EKG Date: 03/13/21 Time: 07:59 Rhythm: NSR Rate (Beats/Min): 82 EKG Interpretation Comments: I reviewed EKG showing sinus rhythm rate of 82 NC 167 QRS 104 QT corrected 512 some prolongation of the QT interval PVC noted abnormal R wave progression specific T wave changes Course - Vital Signs Text/Narrative:: Rule out vertigo, hypoglycemia acute coronary syndrome seems less likely acute stroke although will need to continue to monitor make sure was not a TIA, electrolyte abnormality anemia infection arrhythmia Has a history of having an MRI of the brain on February 19, 2019 that shows some mild generalized atrophy some mild maxillary sinus findings are incidental no other acute abnormalities were noted Last Recorded V/S: Last Vital Signs Temp 97.2 F 03/13/21 07:13 Pulse 72 03/13/21 07:13 Resp 18 03/13/21 07:13 BP 168/60 H 03/13/21 07:13 Pulse Ox 93 L 03/13/21 07:13 Orthostatic Blood Pressure [ 129/62 Standing] Orthostatic Blood Pressure [ 139/68 Supine] - Orders/Labs/Meds Orders: Active Orders 24 hr Category Date Time Status Cardiac Monitoring [RC] . DIRECTED Care 03/13/21 07:46 Active EKG Documentation Completion [RC] ASDIRECTED Care 03/13/21 07:46 Active Orthostatic Vital Signs [RC] ASDIRECTED Care 03/13/21 07:47 Active Hip Min 1V w Pelvis Rt [CR] Stat Exams 03/13/21 10:03 Taken EKG 12 Lead [EK] Stat Ther 03/13/21 07:46 Ordered Labs: Laboratory Tests 03/13/21 03/13/21 03/13/21 Range/Units 07:15 07:15 08:20 WBC 10.31 H (4.23-9.07) K/mm3 RBC 4.75 (4.63-6.08) M/mm3 Hgb 14.3 (13.7-17.5) gm/dl Hct 42.9 (40.1-51.0) % MCV 90.3 (79.0-92.2) fl MCH 30.1 (25.7-32.2) pg MCHC 33.3 (32.2-35.5) g/dl RDW Std Deviation 47.1 H (35.1-43.9) fL Plt Count 202 (163-337) K/mm3 MPV 11.1 (9.4-12.3) fl Neut % (Auto) 70.7 H (34.0-67.9) % Lymph % (Auto) 10.7 L (21.8-53.1) % [place] % (Auto) 16.8 H (5.3-12.2) % Eos % (Auto) 1.2 (0.8-7.0) Baso % (Auto) 0.5 (0.1-1.2) % Neut # (Auto) 7.30 H (1.78-5.38) K/mm3 Lymph # (Auto) 1.10 L (1.32-3.57) K/mm3 [place] # (Auto) 1.73 H (0.30-0.82) K/mm3 Eos # (Auto) 0.12 (0.04-0.54) K/mm3 Baso # (Auto) 0.05 (0.01-0.08) K/mm3 Sodium 137 (136-145) mEq/L Potassium 4.0 (3.5-5.1) mEq/L Chloride 100 (98-107) mEq/L Carbon Dioxide 25 (21-32) mEq/L Anion Gap 16.0 H (5-15) BUN 17 (7-18) mg/dL Creatinine 1.0 (0.7-1.3) mg/dL Est Cr Clr Drug Dosing 53.20 mL/min Estimated GFR (MDRD) > 60 (>60) mL/min BUN/Creatinine Ratio 17.0 (14-18) Glucose 164 H (70-99) mg/dL Calcium 8.8 (8.5-10.1) mg/dL Total Bilirubin 1.2 H (0.2-1.0) mg/dL AST 25 (15-37) U/L ALT 31 (16-63) U/L Alkaline Phosphatase 45 L (46-116) U/L Troponin I < 0.017 (0.00-0.056) ng/mL Total Protein 7.2 (6.4-8.2) g/dl Albumin 3.7 (3.4-5.0) g/dl Globulin 3.5 gm/dL Albumin/Globulin Ratio 1.1 (1-2) TSH 3rd Generation 2.285 (0.358-3.74) uIU/mL Urine Color Yellow (Yellow) Urine Appearance Clear (Clear) Urine pH 7.0 (5.0-8.0) Ur Specific [place] > or = 1.030 (1.005-1.030) Urine Protein Trace H (Negative) Urine Glucose (UA) Negative (Negative) Urine Ketones Trace H (Negative) Urine Occult Blood Negative (Negative) Urine Nitrite Negative (Negative) Urine Bilirubin Negative (Negative) Urine Urobilinogen 0.2 (0.2-1.0) Ur Leukocyte Esterase Negative (Negative) Urine RBC 0-5 (0-5) /hpf Urine WBC 0-5 (0-5) /hpf Ur Squamous Epith Cells 0-5 (0-5) /hpf Urine Bacteria Few (FEW) /hpf Urine Mucus Few (FEW) /hpf White count 10,300 hemoglobin 14.3 hematocrit of 42.9 platelet count is 202,000 sodium 137 potassium 4.0 chloride 100 CO2 is 25 BUN is 17 creatinine 1 GFR greater than 60 blood sugars 164 total bili 1.2 calcium normal LFTs are normal troponin negative protein and albumin are normal TSH is normal urinalysis shows a spec gravity 1.030 else negative - Radiology Interpretation Free Text/Narrative:: Right hip x-ray shows some degenerative changes no acute fracture dislocation or bony cancer lytic changes CT Results Date: 03/13/21 CT Results Time: 08:21 - Re-Assessments/Exams Free Text/Narrative Re-Assessment/Exam: 03/13/21 09:52 CT head noncontrast shows mild generalized atrophy nothing acute is appreciated on the noncontrast CT reviewed from old MRI and CT. 03/13/21 10:09 She is feeling much better no lightheadedness or dizziness no chest pain or breathing problems vital signs remained stable work-up and evaluation including his lab evaluation is essentially unremarkable. He is complained of right hip and pelvis pain has been going on for several weeks and have ordered a x-ray anticipate if negative will discharge home will have him follow-up with his primary care physician and given return precautions. Question whether this could have been a short vertigo episode vasovagal syncope episode does not seem to be acute coronary syndrome at this point do not feel the patient is indicated to be admitted to the hospital. We do recommend that he follows up and have been given him strict return precautions. Departure - Departure Time of Disposition: 10:40 Disposition: Home, Self-Care 01 Condition: Good Clinical Impression: Near syncope, Dizziness, Hip pain, right - Discharge Information Instructions: Near-Syncope, [id number], Dizziness, [id number] Referrals: Evans Delaney MD [Primary Care Provider] - Forms: ED Department Discharge Additional Instructions: Recommend follow-up with your primary care physician Dr. Gil next week, drink plenty of water and fluids, return to the emergency room for any strokelike symptoms especially if you have any loss of vision, slurred speech, weakness, balance problems or worsening symptoms Sepsis Event Note (ED) - Evaluation Sepsis Screening Result: No Definite Risk - Focused Exam Vital Signs: Vital Signs Temp Pulse Resp BP Pulse Ox 03/13/21 07:13 97.2 F 72 18 168/60 H 93 L - My Orders Last 24 Hours: My Active Orders 03/13/21 07:46 Cardiac Monitoring [RC] . DIRECTED EKG Documentation Completion [RC] ASDIRECTED EKG 12 Lead [EK] Stat 03/13/21 07:47 Orthostatic Vital Signs [RC] ASDIRECTED 03/13/21 10:03 Hip Min 1V w Pelvis Rt [CR] Stat - Assessment/Plan Last 24 Hours: My Active Orders 03/13/21 07:46 Cardiac Monitoring [RC] . DIRECTED EKG Documentation Completion [RC] ASDIRECTED EKG 12 Lead [EK] Stat 03/13/21 07:47 Orthostatic Vital Signs [RC] ASDIRECTED 03/13/21 10:03 Hip Min 1V w Pelvis Rt [CR] Stat
--- NOTE | 2021-03-13 08:23 | CT ---
Head CT Technique: Multiple axial sections through the brain were obtained. Reconstructed coronal and sagittal images were obtained. Comparison: Prior MRI brain study of 02/19/[address] study of 02/19/19. Findings: Ventricles along with basal cisterns and sulci over the convexities appear slightly prominent. No definite abnormal parenchymal densities are seen on this exam. No midline shift or mass-effect is seen. No intracranial hemorrhage is noted. Bone window settings were reviewed which show no acute mastoid sinus finding. No acute paranasal sinus findings are seen. No acute calvarial abnormality is appreciated. Impression: 1. Mild generalized atrophy. 2. Nothing acute is appreciated on noncontrast head CT exam. 3. No change is seen from previous study. Diagnostic code #2
--- NOTE | 2021-03-13 10:56 | CR ---
Pelvis and right hip: AP view of the pelvis was obtained as well as AP and frog-leg lateral views of the right hip. Comparison: No prior pelvis or hip exam is available. Joint space within the right hip is maintained. Joint space within the left hip is maintained. Slight degenerative cystic change is seen superiorly within the left hip. Sacroiliac joints are normal. Osteopenia is seen. Vascular calcification is noted. No discrete fracture or other acute abnormality is appreciated. Impression: 1. Slight degenerative change and osteopenia. 2. Nothing acute is appreciated on AP pelvis or 2 view right hip exam. Diagnostic code #2
== END 2021-03-13 10:55 | disposition home or self-care (01) ==
LOC: JD.ED 06:56
DX: R42 Dizziness and giddiness (principal); M25.551 Pain in right hip; E78.00 Pure hypercholesterolemia, unspecified; I10 Essential (primary) hypertension; J44.9 Chronic obstructive pulmonary disease, unspecified; M19.90 Unspecified osteoarthritis, unspecified site; E11.9 Type 2 diabetes mellitus without complications; E03.9 Hypothyroidism, unspecified; Z79.84 Long term (current) use of oral hypoglycemic drugs; Z79.899 Other long term (current) drug therapy; Z79.82 Long term (current) use of aspirin
CPT/HCPCS: 36415; 70450; 70450-26; 73501-26-RT; 73501-RT; 80053; 81001; 84443; 84484; 85025; 93005; 99283; 99285-25

== ENCOUNTER 2021-11-18 09:06 | Emergency (ER) | payer MEDICARE, OTHER ==
[2021-11-18 09:15] VITALS: BP 175/100; PULSE 95
== END 2021-11-18 11:35 | disposition home or self-care (01) ==
LOC: JD.ED 09:06
DX: K02.9 Dental caries, unspecified (principal); I10 Essential (primary) hypertension; J44.9 Chronic obstructive pulmonary disease, unspecified; E11.9 Type 2 diabetes mellitus without complications; E03.9 Hypothyroidism, unspecified; E78.00 Pure hypercholesterolemia, unspecified; M19.90 Unspecified osteoarthritis, unspecified site; Z79.82 Long term (current) use of aspirin; Z79.899 Other long term (current) drug therapy
CPT/HCPCS: 99282; 99283

== ENCOUNTER 2023-09-02 09:21 | Emergency (ER) | payer MEDICARE, OTHER ==
[2023-09-02] MEDS ORDERED: Sodium Chloride 0.9% 10 ML Syringe FLUSH PRN ×2 (09:44→09:46)
[2023-09-02] MEDS ORDERED: Iopamidol 755 Mg/ML 100 ML Bottle IVPUSH ONE (09:44)
[2023-09-02] MEDS ORDERED: Sodium Chloride 0.9% 100 ML IV SCH (09:45)
[2023-09-02 09:54] LABS: BASOPHILS ABSOLUTE AUTO 0.1 K/mm3 (0.0-0.2); BASOPHILS PERCENT AUTO 0.7 % (0.0-1.0); EOSINOPHILS PERCENT AUTO 0.3 % (0.0-6.0); HEMATOCRIT 45.8 % (42.0-52.0); HEMOGLOBIN 15.4 gm/dl (14.0-18.0); IMMATURE GRAN ABSOLUTE AUTO 0.02 K/mm3 (0.00-0.05); IMMATURE GRAN PERCENT AUTO 0.2 % (0.0-0.4); LYMPHOCYTES ABSOLUTE AUTO 1.1 K/mm3 (1.0-4.8); LYMPHOCYTES PERCENT AUTO 12.6 % (24.0-44.0); MEAN CORPUSCULAR HEMOGLOBIN 30.9 pg (28.0-32.0); MEAN CORPUSCULAR HGB CONC 33.6 g/dl (32.0-36.0); MEAN PLATELET VOLUME 10.3 fl (9.4-12.4); MONOCYTES ABSOLUTE AUTO 1.6 K/mm3 (0.0-0.8); MONOCYTES PERCENT AUTO 17.4 % (0.0-8.0); NEUTROPHILS ABSOLUTE AUTO 6.2 K/mm3 (1.8-7.7); NEUTROPHILS PERCENT AUTO 68.8 % (41.0-71.0); PLATELET COUNT,PLT 192 K/mm3 (150-400); RED BLOOD CELL COUNT 4.98 M/mm3 (4.52-5.90); WHITE BLOOD CELL COUNT,WBC 8.95 K/mm3 (3.9-11.3)
[2023-09-02 10:06] LABS: INR 1.6; PROTHROMBIN TIME 16.5 SECONDS (9.7-12.0)
[2023-09-02 10:07] LABS: PTT,PARTIAL THROMBOPLSTIN TIME 30.8 SECONDS (21.7-31.4)
[2023-09-02 10:11] LABS: ALBUMIN 3.8 g/dl (3.4-5.0); BILIRUBIN TOTAL 1.9 mg/dL (0.2-1.0); BUN/CREATININE RATIO 13.6 (14-18); CALCIUM 9.1 mg/dL (8.5-10.1); CREATININE 1.4 mg/dL (0.7-1.3); EST CRCL DRUG DOSING (CG) 35.96 mL/min; MAGNESIUM 1.7 mg/dL (1.8-2.4); PROTEIN TOTAL,TP 7.8 g/dl (6.4-8.2)
[2023-09-02 10:45] LABS: SLIDE REVIEW ABNORMAL SMEAR
[2023-09-02 12:40] VITALS: BP 145/82; PULSE 100
== END 2023-09-02 11:48 | disposition home or self-care (01) ==
LOC: JD.ED 09:21
DX: G51.0 Bell's palsy (principal); I10 Essential (primary) hypertension; E11.9 Type 2 diabetes mellitus without complications; J44.9 Chronic obstructive pulmonary disease, unspecified; E78.00 Pure hypercholesterolemia, unspecified; M19.90 Unspecified osteoarthritis, unspecified site; E03.9 Hypothyroidism, unspecified; Z79.84 Long term (current) use of oral hypoglycemic drugs; Z79.82 Long term (current) use of aspirin; Z79.899 Other long term (current) drug therapy
CPT/HCPCS: 36415; 70450; 70496; 70498; 80053; 82947; 83735; 85025; 85610; 85730; 99285; J3490; Q9967; 99284

== ENCOUNTER 2024-06-14 20:20 | Emergency (ER) | payer MEDICARE, OTHER ==
[2024-06-14] MEDS ORDERED: Sodium Chloride 0.9% 10 ML Syringe FLUSH PRN (20:51)
[2024-06-14 20:57] LABS: BASOPHILS ABSOLUTE AUTO 0.1 K/mm3 (0.0-0.2); BASOPHILS PERCENT AUTO 0.6 % (0.0-1.0); EOSINOPHILS ABSOLUTE AUTO 0.1 K/mm3 (0.0-0.4); HEMATOCRIT 45.9 % (42.0-52.0); HEMOGLOBIN 15.8 gm/dl (14.0-18.0); IMMATURE GRAN ABSOLUTE AUTO 0.02 K/mm3 (0.00-0.05); IMMATURE GRAN PERCENT AUTO 0.2 % (0.0-0.4); LYMPHOCYTES ABSOLUTE AUTO 0.9 K/mm3 (1.0-4.8); LYMPHOCYTES PERCENT AUTO 9.1 % (24.0-44.0); MEAN CORPUSCULAR HEMOGLOBIN 31.9 pg (28.0-32.0); MEAN CORPUSCULAR HGB CONC 34.4 g/dl (32.0-36.0); MEAN CORPUSCULAR VOLUME 92.7 fl (83.0-99.0); MEAN PLATELET VOLUME 10.8 fl (9.4-12.4); MONOCYTES ABSOLUTE AUTO 1.3 K/mm3 (0.0-0.8); MONOCYTES PERCENT AUTO 13.5 % (0.0-8.0); NEUTROPHILS ABSOLUTE AUTO 7.4 K/mm3 (1.8-7.7); NEUTROPHILS PERCENT AUTO 75.6 % (41.0-71.0); PLATELET COUNT,PLT 167 K/mm3 (150-400); RED BLOOD CELL COUNT 4.95 M/mm3 (4.52-5.90); WHITE BLOOD CELL COUNT,WBC 9.75 K/mm3 (3.9-11.3)
[2024-06-14 21:18] LABS: APPEARANCE,URINE CLEAR (Clear); BILIRUBIN,URINE NEGATIVE (Negative); COLOR,URINE LIGHT YELLOW (Yellow); GLUCOSE,URINE 2+ (Negative); KETONES,URINE NEGATIVE (Negative); LEUKOCYTE ESTERASE,URINE NEGATIVE (Negative); NITRITE,URINE NEGATIVE (Negative); OCCULT BLOOD,URINE NEGATIVE (Negative); PROTEIN,URINE NEGATIVE (Negative)
[2024-06-14 21:26] LABS: A/G RATIO 1.2 (1-2); ALBUMIN 3.9 g/dl (3.4-5.0); ANION GAP 12.9 (5-15); BILIRUBIN TOTAL 2.2 mg/dL (0.2-1.0); BUN/CREATININE RATIO 12.3 (14-18); C-REACTIVE PROTEIN 0.65 mg/dL (<0.30); CREATININE 1.3 mg/dL (0.7-1.3); EST CRCL DRUG DOSING (CG) 36.72 mL/min; MAGNESIUM 1.8 mg/dL (1.8-2.4); POTASSIUM,K 3.9 mEq/L (3.5-5.1); PROTEIN TOTAL,TP 7.1 g/dl (6.4-8.2)
[2024-06-14] MEDS: Iopamidol 755 Mg/ML 100 ML Bottle IVPUSH ONE (22:41)
[2024-06-14] MEDS: Sodium Chloride 0.9% 10 ML Syringe FLUSH ONE (22:41)
[2024-06-14] MEDS: Sodium Chloride 0.9% 100 ML IV SCH (22:41)
[2024-06-14 23:30] LABS: CORONAVIRUS COVID-19 NAA POSITIVE (NEGATIVE); INFLUENZA A NAA NEGATIVE (NEGATIVE); RESPIRATORY SYNCYTIAL VIR NAA NEGATIVE (NEGATIVE)
[2024-06-15 01:14] VITALS: BP 113/65; PULSE 92
== END 2024-06-15 01:04 | disposition home or self-care (01) ==
LOC: JD.ED 20:20
DX: U07.1 COVID-19 (principal); R42 Dizziness and giddiness; I48.3 Typical atrial flutter; W18.30XA Fall on same level, unspecified, initial encounter
CPT/HCPCS: 0241U; 36415; 70450; 70496; 70498; 80053; 81003; 82947; 83735; 84484; 85025; 86140; 93005; 99285; J3490; Q9967; 93010; 99284

== ENCOUNTER 2024-06-15 14:46 | Inpatient (IN) | payer MEDICARE, OTHER ==
[2024-06-15 15:18] LABS: BASOPHILS ABSOLUTE AUTO 0.1 K/mm3 (0.0-0.2); BASOPHILS PERCENT AUTO 0.7 % (0.0-1.0); EOSINOPHILS PERCENT AUTO 0.3 % (0.0-6.0); HEMATOCRIT 49.9 % (42.0-52.0); HEMOGLOBIN 16.4 gm/dl (14.0-18.0); IMMATURE GRAN ABSOLUTE AUTO 0.03 K/mm3 (0.00-0.05); IMMATURE GRAN PERCENT AUTO 0.3 % (0.0-0.4); LYMPHOCYTES ABSOLUTE AUTO 0.8 K/mm3 (1.0-4.8); LYMPHOCYTES PERCENT AUTO 7.5 % (24.0-44.0); MEAN CORPUSCULAR HEMOGLOBIN 30.8 pg (28.0-32.0); MEAN CORPUSCULAR HGB CONC 32.9 g/dl (32.0-36.0); MEAN CORPUSCULAR VOLUME 93.8 fl (83.0-99.0); MEAN PLATELET VOLUME 11.4 fl (9.4-12.4); MONOCYTES ABSOLUTE AUTO 1.6 K/mm3 (0.0-0.8); MONOCYTES PERCENT AUTO 16.1 % (0.0-8.0); NEUTROPHILS ABSOLUTE AUTO 7.7 K/mm3 (1.8-7.7); NEUTROPHILS PERCENT AUTO 75.1 % (41.0-71.0); PLATELET COUNT,PLT 148 K/mm3 (150-400); RED BLOOD CELL COUNT 5.32 M/mm3 (4.52-5.90); WHITE BLOOD CELL COUNT,WBC 10.19 K/mm3 (3.9-11.3)
[2024-06-15 15:25] LABS: INR 1.9; PROTHROMBIN TIME 19.3 SECONDS (9.7-12.0)
[2024-06-15 15:26] LABS: PTT,PARTIAL THROMBOPLSTIN TIME 25.8 SECONDS (21.7-31.4)
[2024-06-15 15:32] LABS: A/G RATIO 1.1 (1-2); ALBUMIN 3.8 g/dl (3.4-5.0); ANION GAP 16.4 (5-15); BILIRUBIN TOTAL 2.9 mg/dL (0.2-1.0); BUN/CREATININE RATIO 13.6 (14-18); CALCIUM 9.2 mg/dL (8.5-10.1); CREATININE 1.4 mg/dL (0.7-1.3); EST CRCL DRUG DOSING (CG) 35.29 mL/min; MAGNESIUM 1.7 mg/dL (1.8-2.4); PROTEIN TOTAL,TP 7.4 g/dl (6.4-8.2)
[2024-06-15 15:33] LABS: LACTIC ACID 3.2 mmol/L (0.4-2.0)
[2024-06-15 15:34] LABS: POTASSIUM,K 4.4 mEq/L (3.5-5.1)
[2024-06-15] MEDS: Iopamidol 612 MG/ML 30 ML SDV IV ONE (16:09)
[2024-06-15] MEDS: Sodium Chloride 0.9% 10 ML Syringe FLUSH PRN (16:09)
[2024-06-15] MEDS: Iopamidol 612 MG/ML 100 ML Bottle IVPUSH ONE (16:09)
[2024-06-15 16:24] LABS: BASE EXCESS ARTERIAL -2.1 (-2-2.0); BICARBONATE,ARTERIAL 21.5 meq/L (22.0-26.0); CARBOXYHEMOGLOBIN 2.7 %THgb (0.00-1.50); O2 SATURATION ARTERIAL 94.4 % (96.0-97.0); PCO2 ARTERIAL 35.1 mmHg (35.0-45.0)
[2024-06-15] MEDS: Sodium Chloride 0.9% 1,000 ML IV ONE ×2 (16:57→20:11)
[2024-06-15 17:05] LABS: APPEARANCE,URINE CLEAR (Clear); BILIRUBIN,URINE NEGATIVE (Negative); COLOR,URINE YELLOW (Yellow); GLUCOSE,URINE 2+ (Negative); KETONES,URINE 1+ (Negative); LEUKOCYTE ESTERASE,URINE NEGATIVE (Negative); NITRITE,URINE NEGATIVE (Negative); OCCULT BLOOD,URINE 1+ (Negative); PH,URINE 6.5 (5.0-8.0); PROTEIN,URINE 1+ (Negative); UROBILINOGEN,URINE 0.2 (0.2-1.0)
[2024-06-15 17:50] LABS: BACTERIA,URINE FEW /hpf (FEW); MUCUS,URINE FEW /hpf (FEW); SQUAMOUS EPITHELIAL CELLS,UR 0-5 /hpf (0-5); WBC,URINE 0-5 /hpf (0-5)
[2024-06-15] MEDS ORDERED: Warfarin 2.5 MG Tab PO SCH (21:15)
[2024-06-15] MEDS ORDERED: Warfarin 5 MG Tab PO SCH (21:15)
[2024-06-15] MEDS ORDERED: Metoprolol Succinate 50 MG Tab.ER PO SCH (21:15)
[2024-06-15] MEDS: Sodium Chloride 0.9% 500 ML IV ONE (21:37)
[2024-06-15] MEDS: REMDESIVIR 200 MG in Sodium Chloride 0.9% 250 ML IV ONE (21:38)
[2024-06-15 22:05] LABS: INR 1.81; PROTHROMBIN TIME 18.5 SECONDS (9.7-12.0)
[2024-06-15 22:06] LABS: ANION GAP 16.8 (5-15); CALCIUM 8.4 mg/dL (8.5-10.1); CREATININE 1.2 mg/dL (0.7-1.3); EST CRCL DRUG DOSING (CG) 41.17 mL/min; POTASSIUM,K 3.8 mEq/L (3.5-5.1)
[2024-06-16] MEDS: QUEtiapine 25 MG Tab PO ONE (00:40)
[2024-06-16] MEDS: Levothyroxine 50 MCG Tab PO SCH (06:46)
[2024-06-16] MEDS: Metoprolol Succinate 50 MG Tab.ER PO SCH (08:20)
[2024-06-16] MEDS: Dexamethasone 6 MG TABLET PO SCH (11:31)
[2024-06-16] MEDS: Insulin Lispro 100 Unit/ML 3 ML KwikPen SUBCUT SCH (11:53)
[2024-06-16] MEDS: Warfarin 5 MG Tab PO SCH (17:35)
[2024-06-16] MEDS: atorvaSTATin 20 MG Tab PO SCH (21:54)
[2024-06-16] MEDS: REMDESIVIR 100 MG in Sodium Chloride 0.9% 250 ML IV SCH (21:54)
[2024-06-17 04:42] LABS: HEMATOCRIT 45.4 % (42.0-52.0); HEMOGLOBIN 15.2 gm/dl (14.0-18.0); MEAN CORPUSCULAR HGB CONC 33.5 g/dl (32.0-36.0); MEAN CORPUSCULAR VOLUME 92.7 fl (83.0-99.0); PLATELET COUNT,PLT 133 K/mm3 (150-400); WHITE BLOOD CELL COUNT,WBC 5.64 K/mm3 (3.9-11.3)
[2024-06-17 05:04] LABS: ANION GAP 13.1 (5-15); BUN/CREATININE RATIO 21.1 (14-18); C-REACTIVE PROTEIN 5.01 mg/dL (<0.30); CALCIUM 8.4 mg/dL (8.5-10.1); CREATININE 0.9 mg/dL (0.7-1.3); EST CRCL DRUG DOSING (CG) 54.89 mL/min; MAGNESIUM 1.9 mg/dL (1.8-2.4)
[2024-06-17 05:07] LABS: POTASSIUM,K 4.1 mEq/L (3.5-5.1)
[2024-06-17 10:46] LABS: INR 1.49; PROTHROMBIN TIME 15.4 SECONDS (9.7-12.0)
[2024-06-17] MEDS: Heparin Sodium 5,000 Units/ML Vial IVPUSH ONE (11:34)
[2024-06-17] MEDS: Heparin Sodium/D5W 25,000 UNITS/500 ML BAG IV SCH (11:35)
[2024-06-17] MEDS: Warfarin 5 MG Tab PO SCH (17:51)
[2024-06-17] MEDS ORDERED: Warfarin 2.5 MG Tab PO SCH (18:00)
[2024-06-17] MEDS ORDERED: Acetaminophen 325 MG Tab PO PRN (19:13)
[2024-06-17] MEDS: Loperamide 2 MG Cap PO PRN (19:55)
[2024-06-17] MEDS: Losartan 100 MG Tab PO SCH (19:58)
[2024-06-17] MEDS: Pantoprazole 40 MG Tab.CR PO SCH (19:59)
[2024-06-18 05:15] LABS: INR 1.66
[2024-06-18 06:03] LABS: TSH 2.365 uIU/mL (0.358-3.74)
[2024-06-18] MEDS: Furosemide 20 MG Tab PO SCH (08:53)
[2024-06-18] MEDS: Warfarin 5 MG Tab PO SCH (17:42)
[2024-06-19 03:26] LABS: INR 1.87
[2024-06-19] MEDS: Heparin Sodium 5,000 Units/ML Vial IVPUSH ONE (12:04)
[2024-06-19] MEDS: Warfarin 5 MG Tab PO SCH (18:27)
[2024-06-20 06:27] LABS: INR 2.04; PROTHROMBIN TIME 20.6 SECONDS (9.7-12.0)
[2024-06-20 09:28] VITALS: BP 130/69; PULSE 90
[2024-06-20] MEDS ORDERED: Warfarin 5 MG Tab PO SCH (18:00)
== END 2024-06-20 10:42 | disposition home or self-care (01) | DRG 177 ==
LOC: JD.ED 14:46 → JD.MS 21:08
PROVIDERS: ADMIT Family Medicine; ATTEND Student in an Organized Health Care Education/Training Program
PROC: XW033E5 Introduction of Remdesivir Anti-infective into Peripheral Vein, Percutaneous Approach, New Technology Group 5 (ICD-10-PCS; principal; 2024-06-15)
PROC: 3E0DX3Z Introduction of Anti-inflammatory into Mouth and Pharynx, External Approach (ICD-10-PCS; 2024-06-15)
DX: U07.1 COVID-19 (principal); R41.0 Disorientation, unspecified; E11.9 Type 2 diabetes mellitus without complications; J96.01 Acute respiratory failure with hypoxia; E87.20 Acidosis, unspecified; G93.49 Other encephalopathy; Z66 Do not resuscitate; I10 Essential (primary) hypertension; I48.91 Unspecified atrial fibrillation; E78.00 Pure hypercholesterolemia, unspecified; E03.9 Hypothyroidism, unspecified; R54 Age-related physical debility; K21.9 Gastro-esophageal reflux disease without esophagitis; Z68.32 Body mass index [BMI] 32.0-32.9, adult; J44.9 Chronic obstructive pulmonary disease, unspecified; E66.9 Obesity, unspecified; M19.90 Unspecified osteoarthritis, unspecified site; E11.22 Type 2 diabetes mellitus with diabetic chronic kidney disease; I12.9 Hypertensive chronic kidney disease with stage 1 through stage 4 chronic kidney disease, or unspecified chronic kidney disease; N18.30 Chronic kidney disease, stage 3 unspecified; H54.7 Unspecified visual loss; H91.90 Unspecified hearing loss, unspecified ear; Z90.89 Acquired absence of other organs; R79.1 Abnormal coagulation profile; Z79.01 Long term (current) use of anticoagulants; Z86.16 Personal history of COVID-19; Z79.84 Long term (current) use of oral hypoglycemic drugs; Z79.890 Hormone replacement therapy; Z79.899 Other long term (current) drug therapy; Z86.73 Personal history of transient ischemic attack (TIA), and cerebral infarction without residual deficits
CPT/HCPCS: 36415; 36600; 70450; 71045; 71260; 72125; 74177; 80053; 81001; 82375; 82550; 82803; 83605 ×2; 83735; 84484 ×2; 85025; 85610; 85730; 87040 ×2; 93005; J3490; J7030 ×2; Q9967 ×2; 80048; 80307; 82947; 84443; 85027; 85379; 86140; 93010; 94760; 94761; 96361; 96365; 97110-GP; 97161-GP; 99222; 99232; 99239; 99284; 99285-25; A9270-GY; J0248; J1644; J1815; J7050; J8540